=== PATIENT | male | born 1980 | race Caucasian/White ===

== ENCOUNTER 2019-11-27 12:55 | Emergency (ER) | payer SELFPAY ==
[2019-11-27 13:08] VITALS: BP 125/74; PULSE 90; RESP 15; TEMP 36.8; O2SAT 97; BMI 23.7
--- NOTE | 2019-11-27 13:18 | XRR_ITS ---
PROCEDURE INFORMATION: Exam: XR Chest, 1 View Exam date and time: 11/27/2019 1:20 PM Age: 38 years old Clinical indication: Chest pain; Additional info: Cough fever TECHNIQUE: Imaging protocol: XR of the chest Views: 1 view. COMPARISON: No relevant prior studies available. FINDINGS: Lungs: Unremarkable. No consolidation. Pleural space: Unremarkable. No pleural effusion. No pneumothorax. Heart/Mediastinum: Unremarkable. No cardiomegaly. Bones/joints: Unremarkable. XR/XR chest 1V portable [id number] IMPRESSION: No acute findings.
--- NOTE | 2019-11-27 13:20 | ED_ITS ---
HPI - SOB/Dyspnea General: Chief Complaint: Shortness of Breath/Dyspnea Stated Complaint: sob, abd pain Time Seen by Provider: 11/27/19 13:10 Source: patient Mode of arrival: ambulatory Limitations: no limitations History of Present Illness: HPI Narrative: Patient comes in today with complaints of cough for the last 4 days, worse since last night. Patient has been around people with viral pneumonia. Patient reports abdominal discomfort due to coughing. Patient appears well. Patient appears in no pain. Patient appears in no acute distress. Review of Systems General: Reports: 10 or more systems reviewed and unremarkable except in HPI and below Const: Reports: chills ENMT: Reports: throat pain Resp: Reports: shortness of breath and non-productive cough PFSH ED PFSH: Statuses (acute, chronic, etc) shown below reflect problem list status as previously entered and may not be historically accurate Social History Smoking and tobacco status: current every day smoker Physical Exam Const: COMMON NORMALS: no apparent distress and oriented x3 GENERAL APPEARANCE: cooperative HENMT: COMMON NORMALS: normocephalic, external ears normal, EAC's normal, TM's normal bilaterally and external nose normal HEAD & SCALP: normal to inspection and normocephalic FACE & SINUS: normal facial exam NOSE: external nose normal and nasal discharge (minimal) GENERAL EAR: hearing not grossly impaired EXTERNAL EAR: Yes external ears normal EXTERNAL AUDITORY CANAL: EAC's normal TYMPANIC MEMBRANE: TM's normal bilaterally MOUTH: oral and palatal mucosa normal THROAT: posterior oropharynx normal and posterior oropharynx abnormal erythema Eye: COMMON NORMALS: PERRL and EOMs intact bilaterally PUPIL: Yes PERRL Neck/C-Spine: COMMON NORMALS: full ROM and no lymphadenopathy Lymph: LYMPHATIC: no lymphedema noted Chest: COMMONS NORMALS: inspection of chest normal and palpation of chest normal Resp: COMMON NORMALS: normal respiratory effort and clear to auscultation bilaterally AUSCULTATION: clear to auscultation bilaterally and diminished lung sounds Cardio: COMMON NORMALS: regular rate and regular rhythm RATE: regular rate RHYTHM: regular rhythm GI: COMMON NORMALS: normal to inspection, nondistended, normoactive bowel sounds and non-tender : COMMON NORMALS: Yes no CVA tenderness BLADDER/KIDNEY EXAM: Yes no CVA tenderness Back/Pelvis: COMMON NORMALS: no CVA tenderness and thoracic and lumbar spine normal to inspection Extremity: COMMON NORMALS: normal to inspection GENERAL: No edema Neuro: COMMON NORMALS: oriented x3, moves all extremities and no focal motor deficits Psych: COMMON NORMALS: mental status grossly normal and cooperative Skin: COMMON NORMALS: no rashes or lesions noted GENERAL SKIN EXAM: no rashes or lesions noted Course Vital Signs: Vital signs: Vital Signs Temperature 98.2 F 11/27/19 13:08 Pulse Rate 74 11/27/19 14:50 Respiratory Rate 18 11/27/19 14:50 Blood Pressure 124/78 11/27/19 14:50 Pulse Oximetry 96 11/27/19 14:50 MDM - SOB/Dyspnea MDM Narrative: Medical decision making narrative: Patient comes in with cough and shortness of breath for 4 days. Patient reports feeling worse over the last 2 days. Patient appears mildly unwell. Patient appears in no acute distress. Exam notes some decreased lung sounds but overall good oxygenation with a 98% pulse ox on room air. Respirations are even. Abdomen soft nontender. Skin is warm and dry and color is pink. Vital signs are stable. Differential diagnosis includes pneumonia, influenza, strep pharyngitis, acute bronchitis. Reviewed exam with patient with recommendations for treatment for acute bronchitis. Laboratory values were insignificant. Chest x-ray noted no pneumonia. Patient reported understanding agreed to plan and need for follow-up. Lab Data: Labs: Lab Results 11/27/19 11/27/19 11/27/19 Range/Units 13:25 13:27 13:27 WBC 10.1 H (4.0-10.0) 10^3/ uL RBC 4.93 (4.1-5.3) 10^6/u L Hgb 15.2 (11.7-16.6) g/dL Hct 43.5 (42.0-52.0) % MCV 88.2 (80-94) fL MCH 30.8 (28.0-34.0) pg MCHC 34.9 (30.0-36.0) g/dL RDW 11.7 L (12.1-15.1) % Plt Count 175 (130-400) 10^3/c mm MPV 11.5 H (7.4-10.4) fL Neut % (Auto) 80.6 % Lymph % (Auto) 9.9 % [place] % (Auto) 8.8 % Eos % (Auto) 0.1 % Baso % (Auto) 0.2 % Neut # (Auto) 8.1 H (1.8-7.7) 10^3/u L Lymph # (Auto) 1.0 (0.8-4.8) 10^3/u L [place] # (Auto) 0.9 (0.2-0.9) 10^3/u L Eos # (Auto) 0.0 (0.0-0.8) 10^3/u L Baso # (Auto) 0.0 (0.0-0.1) 10^3/u L Nucleated RBC % (a uto) 0 % Nucleated RBCs # 0.0 /100WBC Sodium 136 (136-145) mmol/L Potassium 4.0 (3.5-5.1) mmol/L Chloride 97 L (98-107) mmol/L Carbon Dioxide 25 (22-29) mmol/L Anion Gap 18.0 (5-19) BUN 12 (6-20) mg/dL Creatinine 1.2 (0.7-1.2) mg/dL GFR Calculation 68.5 L (90-130) mL/min Glucose 95 (74-109) mg/dL Calcium 9.7 (8.6-10.0) mg/Dl Group A Strep Rapi d Negative (Negative) Discharge Plan Discharge Patient Disposition: Home, Self-Care Clinical Impression: Acute bacterial bronchitis Condition: Stable Prescriptions: New doxycycline hyclate 100 mg capsule 100 mg PO BID 10 Days Qty: 20 RF: 0 promethazine-DM 6.25-15 mg/5 mL syrup 5 ml PO Q6H PRN (Reason: cough) Qty: 120 RF: 0 Discharge Orders: Discharge Order (Routine); Ordered 11/27/19 Ordered By: Jean-Claude Trujillo Discharge Diet: Usual diet Discharge Activity: Increase activity as tolerated Patient Instructions: Acute Bronchitis (ED) Activity Restrictions/Additional Instructions: Drink plenty of fluids Medications as directed Stop smoking Follow-up with primary care in one week for recheck Return to ER for high fever or worsening difficulty breathing Discharge Date/Time: 11/27/19 14:58 Coding Level of Care Code ED [employer] for Marilynn Fwd Exam Problem Focused
[2019-11-27 13:33] LABS: Basophils % 0.2 %; Eosinophils % 0.1 %; Hematocrit 43.5 % (42.0-52.0); Hemoglobin 15.2 g/dL (11.7-16.6); Lymphocytes % 9.9 %; Mean Corpuscular HGB Conc 34.9 g/dL (30.0-36.0); Mean Corpuscular Hemoglobin 30.8 pg (28.0-34.0); Mean Corpuscular Volume 88.2 fL (80-94); Mean Platelet Volume 11.5 fL (7.4-10.4); Monocytes # 0.9 10^3/uL (0.2-0.9); Monocytes % 8.8 %; Neutrophils # 8.1 10^3/uL (1.8-7.7); Neutrophils % 80.6 %; Nucleated Red Blood Cells % 0 %; Platelet Count 175 10^3/cmm (130-400); Red Blood Count 4.93 10^6/uL (4.1-5.3); Red Cell Distribution Width 11.7 % (12.1-15.1); White Blood Count 10.1 10^3/uL (4.0-10.0)
[2019-11-27 13:51] LABS: Blood Urea Nitrogen 12 mg/dL (6-20); Calcium 9.7 mg/Dl (8.6-10.0); Carbon Dioxide 25 mmol/L (22-29); Chloride 97 mmol/L (98-107); Glomerular Filtration Rate 68.5 mL/min (90-130); Glucose 95 mg/dL (74-109); Sodium 136 mmol/L (136-145)
[2019-11-27 13:54] LABS: Rapid Strep A Test Negative (Negative)
[2019-11-27] MEDS: cefTRIAXone 1,000 mg SDV 1000 MG IM (14:42)
[2019-11-27] MEDS: dexamethasone 10 mg/mL INJ IM (14:44)
[2019-11-27 14:50] VITALS: BP 124/78; PULSE 74; RESP 18; O2SAT 96
[2019-11-27 22:33] LABS: Influenza A by IFA Negative (Negative)
[2019-11-27 22:34] LABS: Influenza B by IFA Negative (Negative)
== END 2019-11-27 14:58 | disposition home or self-care (01) ==
PROVIDERS: Emergency Provider Nurse Practitioner Family
DX: J20.9 Acute bronchitis, unspecified (principal); F17.210 Nicotine dependence, cigarettes, uncomplicated
CPT/HCPCS: 36415; 71045; 80048; 85025; 87081; 87804; 87880; 96372; 99282; J0696; J1100